=== PATIENT | female | born 2000 | race Native Hawaiian/Other Pacific Islander ===

== ENCOUNTER 2021-09-14 13:12 | Emergency (ER) | payer MEDICAID ==
[2021-09-14] MEDS ORDERED: ACETAMINOPHEN 500 MG TAB PO STA (13:16)
[2021-09-14 13:17] VITALS: BP 116/68
--- NOTE | 2021-09-14 13:24 | Emergency Department Report ---
<CLYDE SCRUGGS - Last Filed: 09/14/21 17:10> ED General Adult HPI - General Chief complaint: Vaginal Bleeding Stated complaint: VAGINAL BLEEDING WITH Time Seen by Provider: 09/14/21 13:16 Source: patient Mode of arrival: Ambulatory Limitations: No Limitations - History of Present Illness Initial comments: 21-year-old female patient presents with complaints of vaginal bleeding in starting around 12 PM today. She states the bleeding is light, however states she is having 9/10 in severity pain in the left lower and suprapubic region of her abdomen. She is G1, . Patient estimates she is approximately 5 weeks . She denies any past medical history. Patient also denies any dysuria/hematuria/urinary frequency, dyspareunia, vaginal discharge, or fever/chills/sweats. No stool changes per patient. She has not tried any Tylenol for symptoms. Her first [facility] appointment is scheduled for October 2021 - Related Data Allergies Allergy/AdvReac Type Severity Reaction Status Date / Time No Known Allergies Allergy Unverified 09/14/21 13:15 ED Review of Systems Constitutional: denies: chills, diaphoresis, fever, malaise Cardiovascular: denies: chest pain Gastrointestinal: abdominal pain. denies: nausea, vomiting, constipation Genitourinary: abnormal menses. denies: urgency, dysuria, frequency, hematuria, discharge Skin: denies: change in color Neurological: denies: headache Hematological/Lymphatic: denies: easy bleeding, swollen glands ED Physical Exam - General Limitations: No Limitations General appearance: alert, in no apparent distress - Head Head exam: Present: atraumatic, normocephalic - Eye Eye exam: Present: normal appearance. Absent: scleral icterus - Respiratory Respiratory exam: Present: normal lung sounds bilaterally - Cardiovascular Cardiovascular Exam: Present: regular rate - GI/Abdominal GI/Abdominal exam: Present: soft, tenderness (Suprapubic tenderness to palpation noted), normal bowel sounds. Absent: distended, guarding, rebound, rigid - Neurological Exam Neurological exam: Present: alert, oriented X3, normal gait - Psychiatric Psychiatric exam: Present: normal affect, normal mood - Skin Skin exam: Present: warm, dry, intact, normal color. Absent: rash ED Medical Decision Making - Lab Data Result diagrams: 09/14/21 13:43 09/14/21 13:43 - Medical Decision Making 21-year-old female patient presents with complaints of vaginal bleeding in starting around 12 PM today. She states the bleeding is light, however states she is having 9/10 in severity pain in the left lower and s uprapubic region of her abdomen. She is G1, . Patient estimates she is approximately 5 weeks . She denies any past medical history. Patient also denies any dysuria/hematuria/urinary frequency, dyspareunia, vaginal discharge, or fever/chills/sweats. No stool changes per patient. She has not tried any Tylenol for symptoms. Her first [facility] appointment is scheduled for October 2021 Patient eloped from the ED prior to review of labs. She did not obtain ultrasound ED Disposition Clinical Impression: Vaginal bleeding during Disposition: 07 LEFT AWOL/ELOPED Is pt being admited?: No Condition: Undetermined Referrals: PRIMARY CARE, [Primary Care Provider] - 3-5 Days <АНДРЕЙ RYDER - Last Filed: 09/14/21 19:57> ED Review of Systems ROS: Stated complaint: VAGINAL BLEEDING WITH Other details as noted in HPI ED Course Vital Signs 09/14/21 13:16 Temperature 99.4 F Pulse Rate 85 Respiratory 20 Rate Blood Pressure 116/68 O2 Sat by Pulse 99 Oximetry ED Medical Decision Making - Lab Data Result diagrams: 09/14/21 13:43 09/14/21 13:43 Critical care attestation.: If time is entered above; I have spent that time in minutes in the direct care of this critically ill patient, excluding procedure time. ED Disposition Is pt being admited?: No Does the pt Need Aspirin: No
[2021-09-14 14:09] LABS: Basophils # (Auto) 0.1 K/mm3 (0.0-0.1); Basophils % (Auto) 0.7 % (0.0-1.8); Eosinophils # (Auto) 0.1 K/mm3 (0.0-0.4); Eosinophils % (Auto) 0.9 % (0.0-4.3); Hematocrit 39.7 % (30.3-42.9); Hemoglobin 13.4 gm/dl (10.1-14.3); Lymphocytes % (Auto) 17.9 % (13.4-35.0); Mean Corpuscular HGB Conc 34 % (30-34); Mean Corpuscular Volume 94 fl (79-97); Monocytes # (Auto) 0.8 K/mm3 (0.0-0.8); Monocytes % (Auto) 6.7 % (0.0-7.3); Platelet Count 343 K/mm3 (140-440); Red Blood Count 4.22 M/mm3 (3.65-5.03); Red Cell Distribution Width 13.3 % (13.2-15.2)
[2021-09-14 14:35] LABS: Alanine Aminotransferase 18 units/L (7-56); Albumin 4.3 g/dL (3.9-5); Blood Urea Nitrogen 8 mg/dL (7-17); Calcium 9.2 mg/dL (8.4-10.2); Hemolysis Index 9
[2021-09-14 14:36] LABS: BUN/Creatinine Ratio 20
== END 2021-09-14 13:56 | disposition left against medical advice (07) ==
LOC: ED 13:12
DX: O46.91 Antepartum hemorrhage, unspecified, first trimester (principal); Z3A.01 Less than 8 weeks gestation of pregnancy
CPT/HCPCS: 36415; 80053; 84702; 85025; 86900; 86901; 99282